=== PATIENT | female | born 1950 | race Caucasian/White ===

== ENCOUNTER → 2017-05-04 | Outpatient (CLI) | payer OTHER, MEDICARE | LOC: FIMAGING 10:04 | PROVIDERS: ATTEND Family Medicine | DX: Z12.31 Encounter for screening mammogram for malignant neoplasm of breast (principal) | CPT/HCPCS: G0202 ==

== ENCOUNTER 2017-06-03 07:49 | Emergency (ER) | payer OTHER, MEDICARE ==
[2017-06-03 07:54] VITALS: RESP 18
[2017-06-03] MEDS ORDERED: predniSONE 20 MG TAB PO ONE ×2 (08:21)
--- NOTE | 2017-06-03 08:21 | EDPHY ---
H & P Time Seen by Provider: 06/03/17 07:58 HPI/ROS: CHIEF COMPLAINT: Hives HISTORY OF PRESENT ILLNESS: 66-year-old female presents with hives. She is currently taking amoxicillin after recent gum surgery. Yesterday she had onset of generalized hives. Benadryl with some relief. No associated swelling or shortness of breath. She also is using a new fabric softener. No prior allergic reaction. REVIEW OF SYSTEMS: Constitutional: No fever, no chills Eyes: No visual changes ENT: No sore throat Respiratory: No cough, no shortness of breath Cardiac: No chest pain Gastrointestinal: No nausea, no vomiting, no abdominal pain Genitourinary: no dysuria Musculoskeletal: No leg pain or swelling Skin: No rash Neurological: No headache Psychiatric: No anxiety Past Medical/Surgical History: Pneumonia Social History: Smoking Status: Never smoked Physical Exam: General Appearance: Alert, pleasant Eyes: Pupils equal and round, no periorbital swelling ENT, Mouth: Mucous membranes moist, no oral swelling Neck: Normal inspection, no stridor Respiratory: Lungs are clear to auscultation, no wheezing Cardiovascular: Regular rate and rhythm Neurological: A&O, nonfocal, normal gait Skin: Generalized hives Extremities: No swelling Psychiatric: Mood and affect normal Constitutional: Initial Vital Signs Heart Rate 70 06/03/17 07:50 Respiratory Rate 18 06/03/17 07:50 Blood Pressure 170/69 H 06/03/17 07:50 O2 Sat (%) 100 06/03/17 07:50 O2 Delivery Mode Room Air Allergies/Adverse Reactions: amoxicillin Allergy (Verified 06/03/17 08:24) Home Medications: Medication Instructions Recorded Amoxicillin Trihydrate [Amoxil 250 250 mg PO Q8 06/03/17 mg CAP (*)] predniSONE 40 mg PO DAILY #8 tab 06/03/17 Medical Decision Making ED Course/Re-evaluation: This patient presents with urticaria, most likely secondary to amoxicillin. May also be secondary to new fabric softener. She will stop using bot. She will consider following up with an rock mason apprentice for allergy testing. Prednisone 60 mg orally given. Differential Diagnosis: Differential diagnosis includes though it is not limited to laryngeal edema, bronchospasm, hypotension, angioedema. Departure - Departure Disposition: Home, Routine, Self-Care Clinical Impression: Urticaria Condition: Good Instructions: Urticaria (ED) Additional Instructions: Take Claritin in the morning and Benadryl at night while the rash persists. Take prednisone as prescribed. Stop taking amoxicillin. You should list amoxicillin as an allergy. Consider going to an rock mason apprentice to get allergy testing. Avoid the new fabric softener as you may be allergic to this product. Return for worsening symptoms or any concerns. Referrals: Denise Carroll MD [Primary Care Provider] - As per Instructions Prescriptions: predniSONE 40 mg PO DAILY #8 tab
--- NOTE | 2017-06-03 08:21 | EDPHY ---
H & P Time Seen by Provider: 06/03/17 07:58 HPI/ROS: CHIEF COMPLAINT: Hives HISTORY OF PRESENT ILLNESS: 66-year-old female presents with hives. She is currently taking amoxicillin after recent gum surgery. Yesterday she had onset of generalized hives. Benadryl with some relief. No associated swelling or shortness of breath. She also is using a new fabric softener. No prior allergic reaction. REVIEW OF SYSTEMS: Constitutional: No fever, no chills Eyes: No visual changes ENT: No sore throat Respiratory: No cough, no shortness of breath Cardiac: No chest pain Gastrointestinal: No nausea, no vomiting, no abdominal pain Genitourinary: no dysuria Musculoskeletal: No leg pain or swelling Skin: No rash Neurological: No headache Psychiatric: No anxiety Past Medical/Surgical History: Pneumonia Social History: Smoking Status: Never smoked Physical Exam: General Appearance: Alert, pleasant Eyes: Pupils equal and round, no periorbital swelling ENT, Mouth: Mucous membranes moist, no oral swelling Neck: Normal inspection, no stridor Respiratory: Lungs are clear to auscultation, no wheezing Cardiovascular: Regular rate and rhythm Neurological: A&O, nonfocal, normal gait Skin: Generalized hives Extremities: No swelling Psychiatric: Mood and affect normal Constitutional: Initial Vital Signs Heart Rate 70 06/03/17 07:50 Respiratory Rate 18 06/03/17 07:50 Blood Pressure 170/69 H 06/03/17 07:50 O2 Sat (%) 100 06/03/17 07:50 O2 Delivery Mode Room Air Allergies/Adverse Reactions: amoxicillin Allergy (Verified 06/03/17 08:24) Home Medications: Medication Instructions Recorded Amoxicillin Trihydrate [Amoxil 250 250 mg PO Q8 06/03/17 mg CAP (*)] predniSONE 40 mg PO DAILY #8 tab 06/03/17 Medical Decision Making ED Course/Re-evaluation: This patient presents with urticaria, most likely secondary to amoxicillin. May also be secondary to new fabric softener. She will stop using bot. She will consider following up with an financial market dealer for allergy testing. Prednisone 60 mg orally given. Differential Diagnosis: Differential diagnosis includes though it is not limited to laryngeal edema, bronchospasm, hypotension, angioedema. Departure - Departure Disposition: Home, Routine, Self-Care Clinical Impression: Urticaria Condition: Good Instructions: Urticaria (ED) Additional Instructions: Take Claritin in the morning and Benadryl at night while the rash persists. Take prednisone as prescribed. Stop taking amoxicillin. You should list amoxicillin as an allergy. Consider going to an financial market dealer to get allergy testing. Avoid the new fabric softener as you may be allergic to this product. Return for worsening symptoms or any concerns. Referrals: Denise Carroll MD [Primary Care Provider] - As per Instructions Prescriptions: predniSONE 40 mg PO DAILY #8 tab
[2017-06-03 08:35] VITALS: BP 160/75; PULSE 60; TEMP 97.7; O2SAT 98
== END 2017-06-03 08:36 | disposition home or self-care (01) ==
DX: L50.9 Urticaria, unspecified (principal)

== ENCOUNTER → 2017-12-10 | Outpatient (CLI) | payer OTHER, MEDICARE | LOC: BMCIMAGING 12:30 | PROVIDERS: ATTEND Emergency Medicine | DX: S69.92XA Unspecified injury of left wrist, hand and finger(s), initial encounter (principal) ==